=== PATIENT | male | born 1955 | race Caucasian/White ===

== ENCOUNTER 2023-12-08 06:30 | Day surgery (SDC) | payer MEDICARE, MEDICAID ==
[~2023-12-08] VITALS: Ht 188 cm; Wt 137.9 kg
[~2023-12-08 06:30] MED LIST: ALBUAER3 IN; ASPI-543 PO; CARV3.1240 PO; FINA5TAB4 PO; METF-370 PO; ROSU40TA81 PO
[2023-12-08] MEDS ORDERED: LIDOCAINE 2%HCL (LOCAL ANESTH.) INJ 20ML MDV ONE (07:13)
[2023-12-08] MEDS ORDERED: IOHEXOL 350 MG/ML 100ML IJ ONE (07:13)
[2023-12-08] MEDS ORDERED: HEPARIN IN NS 1000Units/500mL 1,500 ML ONE (07:14)
[2023-12-08] MEDS ORDERED: IODIXANOL 320MG/ML 100ML BTL IV ONE (07:14)
[2023-12-08] MEDS ORDERED: ANGIOMAX 250 MG VIAL IV ONE (08:12)
[2023-12-08] MEDS ORDERED: fentaNYL CITRATE 100 MCG/2 ML VL ONE (08:12)
[2023-12-08] MEDS ORDERED: SODIUM CHL 0.9% 0 ML ONE (08:13)
[2023-12-08] MEDS ORDERED: MIDAZOLAM HCL 2MG/2ML 2ml VIAL (1mg/ml) ONE (08:13)
== END 2023-12-08 11:35 | disposition home or self-care (01) ==
LOC: CATH 06:30
PROVIDERS: ATTEND Internal Medicine Cardiovascular Disease
DX: R07.9 Chest pain, unspecified (principal); I25.10 Atherosclerotic heart disease of native coronary artery without angina pectoris; M10.9 Gout, unspecified; M19.90 Unspecified osteoarthritis, unspecified site; N40.0 Benign prostatic hyperplasia without lower urinary tract symptoms; E78.5 Hyperlipidemia, unspecified; Z88.0 Allergy status to penicillin; Z79.82 Long term (current) use of aspirin; Z87.891 Personal history of nicotine dependence; Z79.899 Other long term (current) drug therapy; Z98.890 Other specified postprocedural states
CPT/HCPCS: 93458; C1760; C1894; J1644; J2250; J3010; J7040; Q9967; 99152